=== PATIENT | male | born 1955 | race Caucasian/White ===

== ENCOUNTER 2016-06-14 10:03 | Day surgery (SDC) | payer BC ==
[~2016-06-14] VITALS: Ht 182.9 cm; Wt 136.1 kg
[~2016-06-14 10:03] MED LIST: ACET-2869 PO; CEFAZOLIN 1 GRAM INJECTION IV ONE; FOLI0.4T2 PO; LEVO50TA51 PO; LUBI24CA7 PO; METO25TA41 PO; ONDA4TAB4 PO; QUET50TA16 PO; ROPI1TAB12 PO; SIMV20TA89 PO
--- OUTSIDE RECORDS SUMMARY | 2016-06-14 10:07 | XMS REPORT | Continuity of Care Document ---
Author Author [facility] Organization [facility] Address Unknown Phone Unavailable Allergies Active Description Code Type Severity Reaction Onset Reported/Identified Relationship to Patient Clinical Status Yes No Known Drug Allergies [id number] Unknown N/A 01/01/2014 Medications Problems Date Dx Coded Attending Type Code Diagnosis Diagnosed By 01/30/2016 DOLLY WALTON G56.01 CARPAL TUNNEL SYNDROME, RIGHT UPPER LIMB 01/30/2016 DOLLY WALTON M19.011 PRIMARY OSTEOARTHRITIS, RIGHT SHOULDER 01/30/2016 DOLLY WALTON P M75.101 UNSPECIFIED ROTATOR CUFF TEAR OR RUPTURE OF RIGHT SHOULDER, NOT SPECIFIED TRAUMATIC 01/30/2016 DOLLY WALTON M75.41 IMPINGEMENT SYNDROME OF RIGHT SHOULDER Procedures Results Encounters ACCT No. Visit Date/Time Discharge Status Pt. Type Provider Facility Loc./Unit Complaint [id number] 09/13/2014 15:30:00 09/13/2014 16:35:00 DIS Emergency NASEEM CARDONA [facility] ER
--- OUTSIDE RECORDS SUMMARY | 2016-06-14 10:07 | XMS REPORT | Continuity of Care Document ---
Author Author [facility] Organization [facility] Address [address] [place] [address] ;ext= Care Team Providers Care Dance Hall Hostess Name Role Phone Vj WALTON Admitting Physician [phone] Vj WALTON Attending Physician [phone] Uche SCHWARTZ [phone] Hospital Admission Diagnosis * No data in the System Social History Element Description Code Description Smoking Status Code System Start Date End Date Smoking Status [id number] Never smoker SNOMED-CT Problems Code Code System Problem Name Start Date End Date Status (L) SIDE WEAKNESS/NUMBNESS Unknown Active BRAIN ANEURYSM 2007 Unknown Active NUMBNESS (L) SIDE Unknown Active SLEEP APNEA-USES CPAP Unknown Active STROKE 2008 Unknown Active TYHROID PROBLEMS Unknown Active 14618230 SNOMED-CT Hypercholesterolemia Unknown Active 40775507 SNOMED-CT Constipation Unknown Active 78625376 SNOMED-CT Hypertensive disorder Unknown Active 58763702 SNOMED-CT Numbness Unknown Active 40159723 SNOMED-CT Low blood pressure Unknown Active 14810254 SNOMED-CT Urinary bladder stone Unknown Active 36277517 SNOMED-CT Sleep apnea Unknown Active 29653313 SNOMED-CT Urolithiasis Unknown Active Medications RxNorm Medication Dose Route Instructions Indications Start Date End Date Status 2449109 Acetaminophen 325 MG / Oxycodone Hydrochloride 5 MG Oral Tablet 1 tablet Oral orally every 6 hours as needed. pain Active 4511 Folic Acid 800 microgram Oral orally every day health and wellness Active Levothyroxine 50 microgram Oral orally every day hypothyroidism Active 506171 lubiprostone 24 microgram Oral orally every day (administer with food) constipation Active 6918 Metoprolol 12.5 milligram Oral orally every day high blood pressure Active 7258 Naproxen 220 milligram Oral orally every 12 hours as needed. ( administer with food or milk;) pain Active 437079 pyridoxine 100 milligram Oral orally every day Active 01167 quetiapine 50 milligram Oral orally every day at bedtime (administer on day 1 of therapy; swallow whole; do not crush, chew, break, dissolve, or cut; ) Active 53440 ropinirole 1 milligram Oral orally every day at bedtime (administer 2 hours before bedtime;) Active 60690 Simvastatin 20 milligram Oral orally every evening high cholesterol Active 05342 quetiapine 50 milligram Oral orally every day sleep No Longer Active Allergies * No Known Allergies Results * No data in the system Vital Signs Vitals Value Date O2% BldC Oximetry 96 12/22/2015 BP Systolic 115 mmHg 12/22/2015 BP Diastolic 71 mmHg 12/22/2015 Body Temperature 97.8 F 12/22/2015 Respiratory Rate 22 12/22/2015 Height 72 in 12/22/2015 Weight Measured 273 lbs 12/22/2015 BSA (Body Surface Area) 2.30421 12/22/2015 BMI (Body Mass Index) 37.3 12/22/2015 Plan of Care * No data in the system Procedures * No data in the system Encounters * No data in the system Immunizations Vaccine Code Code System Vaccine Name Date Status 88 CVX influenza virus vaccine, NOS 12/09/2014 Completed 109 CVX pneumococcal vaccine, NOS Completed Functional Status * No data in the system Hospital Discharge Instructions
--- OUTSIDE RECORDS SUMMARY | 2016-06-14 10:07 | XMS REPORT | Continuity of Care Document ---
Author Author [facility] Organization [facility] Address [address] [place] [address] ;ext= Care Team Providers Care Net Applications Developer Name Role Phone Vj WALTON Admitting Physician [phone] Vj WALTON Attending Physician [phone] Uche SCHWARTZ RP [phone] Hospital Admission Diagnosis Code Admission Diagnosis Date [id number] Rotator cuff syndrome Social History Element Description Code Description Smoking Status Code System Start Date End Date Smoking Status [id number] Never smoker SNOMED-CT Problems Code Code System Problem Name Start Date End Date Status (L) SIDE WEAKNESS/NUMBNESS Unknown Active BRAIN ANEURYSM 2008 Unknown Active NUMBNESS (L) SIDE Unknown Active SLEEP APNEA-USES CPAP Unknown Active STROKE 2008 Unknown Active TYHROID PROBLEMS Unknown Active 42838641 SNOMED-CT Hypercholesterolemia Unknown Active 17617225 SNOMED-CT Constipation Unknown Active 99099277 SNOMED-CT Hypertensive disorder Unknown Active 03842366 SNOMED-CT Numbness Unknown Active 10566720 SNOMED-CT Low blood pressure Unknown Active 66514013 SNOMED-CT Urinary bladder stone Unknown Active 85612067 SNOMED-CT Sleep apnea Unknown Active 09536910 SNOMED-CT Urolithiasis Unknown Active Medications RxNorm Medication Dose Route Instructions Indications Start Date End Date Status 870455 24 HR quetiapine 50 MG Extended Release Oral Tablet 50 milligram Oral orally every day at bedtime (administer on day 1 of therapy; swallow whole ; do not crush, chew, break, dissolve, or cut;) Active 7507611 Acetaminophen 325 MG / Oxycodone Hydrochloride 5 MG Oral Tablet 1 tablet Oral orally every 6 hours as needed. pain Active 636667 Folic Acid 0.8 MG Oral Tablet 800 microgram Oral orally every day health and wellness Active Levothyroxine 50 microgram Oral orally every day hypothyroidism Active 147186 lubiprostone 0.024 MG Oral Capsule 24 microgram Oral orally every day (administer with food) constipation Active 6918 Metoprolol 12.5 milligram Oral orally every day high blood pressure Active 7258 Naproxen 220 milligram Oral orally every 12 hours as needed. ( administer with food or milk;) pain Active 420639 ropinirole 1 MG Oral Tablet 1 milligram Oral orally every day at bedtime (administer 2 hours before bedtime;) Active 617114 Simvastatin 20 MG Oral Tablet 20 milligram Oral orally every evening high cholesterol Active 493773 Vitamin B6 100 MG Oral Tablet 100 milligram Oral orally every day Active 080805 quetiapine 50 MG Oral Tablet 50 milligram Oral orally every day sleep [...] 273 lbs 12/22/2015 BSA (Body Surface Area) 2.05029 12/22/2015 BMI (Body Mass Index) 37.3 12/22/2015 Plan of Care * No data in the system Procedures Code Code System Procedure Name Target Site Date of Procedure 37276 CPT4 ARTHROSCOPY SHOULDER DISTAL CLAVICULECTO 89667 CPT4 ARTHROSCOPY SHOULDER ROTATOR CUFF REPAIR 08806 CPT4 ARTHROSCOPY SHOULDER W/CORACOACRM LIGMNT 04161 CPT4 NEUROPLASTY &/TRANSPOS MEDIAN NRV CARPAL Encounters Date Code Diagnosis Status (ICD10) - W75935 UNS ROT CUFF TEAR/RUPT RT SHOULDER Active Immunizations Vaccine Code Code System Vaccine Name Date Status 88 CVX influenza virus vaccine, NOS 12/09/2014 Completed 109 CVX pneumococcal vaccine, NOS Completed Functional Status * No data in the system Hospital Discharge Instructions
[2016-06-14 10:40] VITALS: BP 125/95; PULSE 73; RESP 12; TEMP 98.3; O2SAT 97; Ht 182.9 cm; Wt 136.1 kg
--- NOTE | 2016-06-14 10:53 | ANESPREOP ---
Anesthesia Record Date and Time DATE: 06/14/16 TIME: 10:46 Pre-Op Diagnosis umbilical hernia Proposed Surgical Procedure UMBILICAL HERNIA REPAIR Allergies: Coded Allergies: No Known Drug Allergies (Verified Allergy, 07/04/10) Ht/Wt/BMI Height: 6 ' 0.00 " Weight: kg BMI: kg/m2 Medications Acetaminophen/Diphenhydramine (Acetaminophen-Diphenhyd 500-25) 1 Each Tablet, 2 TAB PO HS PRN for INSOMNIA, (Reported) Folic Acid (Folic Acid) 0.4 Mg Tablet, 1 TAB PO DAILY, (Reported) Levothyroxine Sodium (Levothroid) 50 Mcg Tablet, 50 MCG PO DAILY, (Reported) Lubiprostone (Amitiza) 24 Mcg Capsule, 1 CAP PO BID, (Reported) Metoprolol Tartrate (Metoprolol Tartrate) 25 Mg Tablet, 12.5 MG PO DAILY, ( Reported) Ondansetron HCl (Zofran) 4 Mg Tablet, 4 MG PO Q6H PRN for NAUSEA &/OR VOMITING Quetiapine Fumarate (Seroquel Xr) 50 Mg Tablet, 50 MG PO HS, (Reported) Ropinirole Hcl (Ropinirole Hcl) 1 Mg Tablet, 1 MG PO HS, (Reported) Simvastatin (Simvastatin) 20 Mg Tablet, 20 MG PO, (Reported) Currently on Beta Emiliana: Yes Medical/Surgical History Anesthesia PMH: Reports: *Hypertension, CVA/Stroke/TIA (BRAIN BLEED X3), Obesity, Sleep Apnea (HAS CPAP), Thyroid Disease (HYPOTHYROID), Denies: *Angina , *Diabetes, *Dyspnea, *ND, Anesthesia Reactions (NO AIRWAY/INTUBATION ISSUES), Arthritis, Asthma, Blood Transfusion Reac, CHF, COPD, Cancer, Clotting Problems , Deep Vein Thrombosis, Glaucoma, Hepatitis, Hiatal Hernia, Malignant Hyperthermia, Pneumonia, Reflux, Renal Disease, Seizures, Tuberculosis Smoking Status: Never smoker Has pt. smoked today?: No Use Chewing Tobacco?: No Second Hand Exposure: No Substance Use Type: does not use Substance last used: unknown Alcohol Intake: rarely Last Drink: unknown Past Surgical History Orthopedic Surgeries: Yes - R RTCR Abdominal Surgeries: No Genitourinary Surgeries: No Cardiac Surgeries: No Endocrine Surgeries: No Reproductive Surgeries: No Neurological Surgeries: Yes - CRANIOTOMY Ear Surgeries: No Nose Surgeries: Yes - MULTIPLE SINUS SRGS Throat Surgeries: Other Surgeries: Yes Anesthesia Adverse Reactions: FOUND none Family Hx of Anesthesia Advers: none Hx of Motion Sickness: No Pertinent Findings EKG Rhythm: Sinus Rhythm Physical Exam Respiratory: Bilat breath sounds equal, Lungs clear Cardiovascular: FOUND Regular rate, rhythm, FOUND No murmur Airway Assessment Mallampati Score: III TMD: 2 Fingerbreadths Neck Extension: Fair Overall Assessment: May Be Diff Mask Vent., May Be Diff Intubation ASA: 3 Plan Anesthesia Plan: GETA Discussion Discussed risks/options/alternatives of anesthesia and questions answered. Patient consents. Nursing pain assessment noted. Attestation Statement Prior to the delivery of any anesthetic medication, I examined the patient, developed the plan, obtained the patient's consent and discussed the risk and benefits of the procedure with the patient/guardian. RUTHY HOFF CRNA Jun 14, 2016 10:49
[2016-06-14] MEDS ORDERED: LR 1,000 ML IV PRN (11:15)
[2016-06-14] MEDS ORDERED: FENTANYL 100mcg/2ml INJECTION ONE (11:37)
[2016-06-14] MEDS ORDERED: LIDOCAINE 2% (20mg/ml) 5ml PF SDV ONE (11:38)
[2016-06-14] MEDS ORDERED: MIDAZOLAM 2mg/2ml INJECTION ONE (11:38)
[2016-06-14] MEDS ORDERED: PROPOFOL 500mg 50 ML IV ONE (11:38)
[2016-06-14] MEDS ORDERED: KETAMINE 500mg/10ml INJECTION ONE (11:38)
[2016-06-14] MEDS ORDERED: BUPIVACAINE 0.25%/EPI 1:200,000 30ml SDV ONE (11:45)
[2016-06-14] MEDS ORDERED: KETOROLAC 30mg/ml INJECTION ONE (12:26)
[2016-06-14 12:37] VITALS: BP 111/65; PULSE 68; RESP 16; TEMP 97.9; O2SAT 96
[2016-06-14 12:52] VITALS: BP 105/62; PULSE 60; RESP 12; O2SAT 92
[2016-06-14] MEDS ORDERED: IBUP-1724 PO (12:55)
[2016-06-14] MEDS ORDERED: POLY17PO6 PO (12:55)
[2016-06-14] MEDS ORDERED: HYDROCODONE/APAP 5 mg/325 mg TABLET PO ONE (13:00)
[2016-06-14] MEDS: MORPHINE 10mg/ml vl INJECTION IV PRN ×2 (13:02→13:31)
[2016-06-14 13:07] VITALS: BP 123/73; PULSE 68; RESP 17; O2SAT 92
--- NOTE | 2016-06-14 13:13 | ANESPO ---
Post-Op Note Date 06/14/16 Time: 12:54 Status Pt Participated in Evaluation: Pt participated in person Vital Signs Date Time Temp Pulse Resp B/P Pulse Ox O2 Delivery O2 Flow Rate FiO2 06/14/16 12:52 60 12 105/62 92 Room Air 06/14/16 12:37 97.9 Respiratory Function: Airway patent Mental Status: Alert/oriented Pain Level Intensity: 3 Hydration: IV infusing Complications during Recovery None apparent Follow-Up Instructions Instructions Per Surgeon ARIC YOST CRNA Jun 14, 2016 13:13
[2016-06-14 13:22] VITALS: BP 125/71; PULSE 60; RESP 15; O2SAT 95
[2016-06-14 13:52] VITALS: BP 131/75; PULSE 33; RESP 16; TEMP 97.6; O2SAT 92
--- NOTE | 2016-06-14 19:56 | OPNOTEF ---
DATE OF SERVICE 06/14/2016 SURGEON Robby Spaulding MD PREOPERATIVE DIAGNOSIS Symptomatic umbilical hernia. POSTOPERATIVE DIAGNOSIS Symptomatic umbilical hernia. PROCEDURE Repair of incarcerated local hernia with incorporation of mesh. ANESTHESIA TIVA/local. BRIEF HISTORY/INDICATIONS Mr. Jordan is a 60-year-old gentleman who presents today to [facility] to undergo an elective repair of a symptomatic umbilical hernia. For completeness please refer to notes included in the patient's chart. PROCEDURE After informed consent was obtained the patient was brought to the operative suite and placed on the table in supine fashion. Paraumbilical region was then prepped and draped in sterile fashion. Formal time-out was then completed. 0.25% Marcaine with epinephrine was injected circumferentially around the level of the umbilicus. A 3-cm curved incision was then made through the area of analgesia. Dissection was carried down into the deep subcuticular tissues to underlying fascia. The base of the umbilicus was then dissected off of a small incarcerated hernia sac coming forth through a fascial defect. Edges of the fascial defect were then dissected out circumferentially. There was a portion of omentum which was incarcerated into this hernia sac. The hernia sac and omentum were returned back through the fascial defect that was on the order about 2 cm in diameter. Edges of the fascial defect were then dissected out further circumferentially. Next, a piece of Ventralex mesh that was approximately 4 cm in diameter was rolled upon itself and placed into the preperitoneal location just beneath the fascial defect and flattened out so that it covered the edges of the fascial defect by an couple of centimeters circumferentially. Next, attention was then directed towards closure of the fascial defect itself. Fascial defect was closed transversely by placing multiple single interrupted sutures of 0-PDS. These sutures were placed in such a fashion as to incorporate a small portion of the underlying mesh. Tail portions of the mesh that were exiting through the fascial defect were then transected beneath the fascia itself. Each suture was then tied sequentially resulting in nice imbrication of the fascial edges with incorporation of mesh in a preperitoneal location. Next, the base of the umbilicus was then imbricated to the underlying fascia by placing a single interrupted suture of 3-0 Vicryl. First, a small subcuticular purchase at the base of the umbilicus was obtained followed by a small purchase of fascia just beneath the fascial closure. Next, the incision itself was then closed in layers. Deep subcutaneous tissues were reapproximated in a running fashion with 3-0 Vicryl. Skin itself was then closed in a running subcuticular fashion with 4-0 Monocryl. Dermabond was placed overlying the incision. Patient is in the process of awakening from his anesthetic and will be sent back to the recovery room once deemed in stable condition. YVONNE
== END 2016-06-14 14:03 | disposition home or self-care (01) ==
LOC: SCU 10:03
PROVIDERS: ATTEND Surgery
DX: K42.0 Umbilical hernia with obstruction, without gangrene (principal); I10 Essential (primary) hypertension; K21.9 Gastro-esophageal reflux disease without esophagitis; G47.30 Sleep apnea, unspecified; Z79.899 Other long term (current) drug therapy; Z99.81 Dependence on supplemental oxygen
CPT/HCPCS: 49587; J0690; J1885; J2250; J2704; J3010; J7120; S0020